=== PATIENT | male | born 1990 | race Caucasian/White ===

== ENCOUNTER 2019-08-14 12:21 | Emergency (ER) | payer OTHER ==
[2019-08-14 12:26] VITALS: BP 152/90; PULSE 70; RESP 16; TEMP 98.6
[2019-08-14] MEDS ORDERED: DIPH,PERTUS(ACELL)TETVAC-LF 0.5 ML VIAL IM ONE (12:35)
[2019-08-14] MEDS ORDERED: LIDOCAINE 1% INJ 10MG/ML (20 ML MDV) SQ ONE (12:50)
--- NOTE | 2019-08-14 13:04 | ED ---
Wound/Laceration HPI - General Chief Complaint: Wound/Laceration Stated Complaint: lt hand, finger crushed Time Seen by Provider: 08/14/19 12:34 Source: patient Mode of arrival: ambulatory Limitations: no limitations - History of Present Illness Initial Comments: 29-year-old male presenting today for chief complaint of left middle finger pain. Patient states that he caught his finger between 2 pieces of sheet metal. Patient states his laceration is not sure if it's broken. Denies any limitations in range of motion denies any numbness tingling or loss of sensation. Patient states that he is able to fully range the digit without any difficulty or weakness. Patient states he did not want come to the emergency department however he had a friend thought he might need sutures. Patient presents emergency for further evaluation. Patient is unsure of his last tetanus. Patient denies any other areas of injury. Remaining review of systems negative. - Related Data Previous Rx's Medication Instructions Recorded Cephalexin [Keflex] 500 mg PO Q6HR 7 Days #28 cap 08/14/19 Allergies Allergy/AdvReac Type Severity Reaction Status Date / Time No Known Allergies Allergy Verified 08/14/19 12:24 Review of Systems ROS Statement: Those systems with pertinent positive or pertinent negative responses have been documented in the HPI. ROS Other: All systems not noted in ROS Statement are negative. Past Medical History Past Medical History: No Reported History History of Any Multi-Drug Resistant Organisms: None Reported Past Surgical History: No Surgical Hx Reported Past Psychological History: No Psychological Hx Reported Smoking Status: Current every day smoker Past Alcohol Use History: Occasional Past Drug Use History: Marijuana General Exam - General Exam Comments Initial Comments: General: The patient is awake and alert, in no distress, and does not appear acutely ill. Eye: Pupils are equal, round and reactive to light, extra-ocular movements are intact. No nystagmus. There is normal conjunctiva bilaterally. No signs of icterus. Cardiovascular: There is a regular rate and rhythm. No murmur, rub or gallop is appreciated. Respiratory: Lungs are clear to auscultation, respirations are non-labored, breath sounds are equal. No wheezes, stridor, rales, or rhonchi. Musculoskeletal: Upon inspection of the digits the hands bilaterally. Smear in black grease adhered to skin. There is a laceration less than 1 cm on the palmar aspect of the left middle finger distal to the DIP joint. Patient has a 1 similar laceration on the lateral edge of the left middle finger nailbed. There is no avulsion of the nail. No evidence of foreign body. Patient has full strength at the DIP PIP as well as MCP joints of the 5 digits of the left hand equal comparison on the affected hand. Strength 5/5. Sensation intact. Radial pulses equal bilaterally 2+. Neurological: A&O x 3. CN II-XII intact grossly, There are no obvious motor or sensory deficits. Coordination appears grossly intact. Speech is normal. Skin: Skin is warm and dry and no rashes or lesions are noted. Psychiatric: Cooperative, appropriate mood & affect, normal judgment. Limitations: no limitations Course Vital Signs 08/14/19 12:22 Temperature 98.6 F Pulse Rate 70 Respiratory 16 Rate Blood Pressure 152/90 O2 Sat by Pulse 98 Oximetry Procedures - Laceration Laceration #1 Consent Obtained: verbal consent Indication: laceration Site: hand (left middle finger) Size (cm): 1 Description: linear Depth: simple, single layer Anesthetic Used: lidocaine 1% Anesthesia Technique: nerve block Amount (mls): 2 Pre-repair: wound explored, irrigated extensively, deep structures intact Type of Sutures: nylon Size of Sutures: 5-0 Number of Sutures: 1 Technique: simple, interrupted Patient Tolerated Procedure: well, no complications Additional Comments: Through nail to adhere tissues. Laceration #2 Consent Obtained: verbal consent Indication: laceration Site: hand (left middle finger, dorsum < 1cm) Size (cm): 1 (actual size .5cm) Description: linear Depth: simple, single layer Anesthetic Used: lidocaine 1% Anesthesia Technique: nerve block Amount (mls): 2 Pre-repair: wound explored, irrigated extensively, deep structures intact Type of Sutures: nylon Size of Sutures: 5-0 Number of Sutures: 2 Technique: simple, interrupted Patient Tolerated Procedure: well, no complications Medical Decision Making - Medical Decision Making 29-year-old male presenting for laceration of the left hand. Imaging studies reveal an oblique fracture distal to the DIP joint. No evidence of foreign body. Area was extensively cleansed and irrigated. Digital block was performed sutures were placed to the nailbed treated here the skin edges after patient was evaluated by my attending provider who is agreeable with this care plan. The very small laceration on the dorsal aspect of the hand was repaired as well 5. 0 nylon sutures were used. A total of 3 sutures in total were placed. The risk of infection were discussed at length the patient verbalized understanding as well as the risk of nailbed damage patient did not want removal of the nail for repair of the nailbed. Patient's tetanus is updated. Patient was placed in a clean bandage and a splint. Patient is given orthopedic surgery follow-up as well as antibiotics given the distal finger open fracture. Patient is agreeable with this care plan and discharge at this time. Return parameters were discussed at length patient who verbalized understanding. Disposition Clinical Impression: Laceration of left middle finger, Phalanx, distal fracture of finger Disposition: HOME SELF-CARE Condition: Good Instructions (If sedation given, give patient instructions): Finger Fracture (ED), Finger Laceration (ED) Additional Instructions: Please use medication as discussed. Please follow-up with family doctor in the next 2 days. and orthopedic surgery in next 1-2 days. Please return to emergency room if the symptoms increase or worsen or for any other concerns. Prescriptions: Cephalexin [Keflex] 500 mg PO Q6HR 7 Days #28 cap Is patient prescribed a controlled substance at d/c from ED?: No Referrals: None,Stated [Primary Care Provider] - 1-2 days Mick Finn DO [Doctor of Osteopathic Medicine] - 1-2 days Time of Disposition: 15:05
--- NOTE | 2019-08-14 13:29 | XR ---
EXAMINATION TYPE: XR hand complete LT DATE OF EXAM: 08/14/2019 CLINICAL HISTORY: Laceration injury with pain. TECHNIQUE: Frontal, lateral and oblique images of the left hand are obtained. COMPARISON: None. FINDINGS: Seen best on oblique images acute oblique minimally displaced fracture through the radial d istal aspect of the third distal phalanx. The joint spaces in the left hand appear within normal limi ts. The overlying soft tissue appears unremarkable. IMPRESSION: There is acute minimally displaced oblique fracture through the radial distal aspect of the third distal phalanx.
[2019-08-14] MEDS ORDERED: ceFAZolin 1,000 MG VIAL (IM USE) IM STA (14:09)
--- NOTE | 2019-08-19 03:15 | CDI ---
Dear katarina wilson DO: Please do addedum for splint procedure in MDM given applyed splint : Thank you, Sanjay Fields, [employer].. If you have any questions, please contact [employer] at [phone] [facility]
--- NOTE | 2019-08-19 16:20 | ED ---
Disposition Clinical Impression: Laceration of left middle finger, Phalanx, distal fracture of finger Disposition: HOME SELF-CARE Condition: Good Instructions (If sedation given, give patient instructions): Finger Fracture (ED), Finger Laceration (ED) Additional Instructions: Please use medication as discussed. Please follow-up with family doctor in the next 2 days. and orthopedic surgery in next 1-2 days. Please return to emergency room if the symptoms increase or worsen or for any other concerns. Prescriptions: Cephalexin [Keflex] 500 mg PO Q6HR 7 Days #28 cap Is patient prescribed a controlled substance at d/c from ED?: No Referrals: None,Stated [Primary Care Provider] - 1-2 days Mick Finn DO [Doctor of Osteopathic Medicine] - 1-2 days Time of Disposition: 16:20 Procedures - Orthopedic Splinting/Casting Injury #1 Side: left Upper Extremity Injury Location: finger (3rd L digit splint) Upper Extremity Immobilizer: finger (other)
== END 2019-08-14 15:45 | disposition home or self-care (01) ==
LOC: EC 12:21
DX: S62.633A Displaced fracture of distal phalanx of left middle finger, initial encounter for closed fracture (principal); S61.213A Laceration without foreign body of left middle finger without damage to nail, initial encounter; F17.200 Nicotine dependence, unspecified, uncomplicated; Z23 Encounter for immunization; W23.0XXA Caught, crushed, jammed, or pinched between moving objects, initial encounter
CPT/HCPCS: 99283; 96372; 90471; 12001; 73130; 90715; J0690; J2001